=== PATIENT | male | born 1970 | race Caucasian/White ===

== ENCOUNTER → 2018-07-11 | Outpatient (CLI) | payer OTHER ==
--- NOTE | 2018-07-11 14:58 | US ---
US HEAD NECK SOFT TISSUE CLINICAL STATEMENT: MASS. Left neck. COMPARISON: None FINDINGS: Scanning of the left neck, at the location of palpable lesions lesions. Circumscribed hypoechoic mass wider than tall measuring 1.7 x 0.9 x 0.3, with central echogenicity and vascularity, consistent with a lymph node. Located posterior to the anterior left strap muscle. Another lymph node measures 1.2 x 1.1 x 0.4 cm. In the right neck, posterior to the right strap muscle: 3 similar hypoechoic circumscribed objects with long axis measuring 13 mm, 9 mm, and 9.5 mm. Similar appearance to lymph nodes in the left neck. Not significantly vascular. Not palpable. Thyroid lobes are unremarkable size and echogenicity. IMPRESSION: 1. Bilateral lymph nodes in the anterolateral neck, posterior to the anterior strap muscles. The left side lymph nodes were palpable. No reactive lymph nodes or soft tissue masses are seen. No definite cysts. No large calcifications. No abnormal vascularity. CRITICAL COMMUNICATION: The critical value was discussed directly by phone with Dr. Lowell Javier at approximately 1455 hours, on 07/11/2018. Electronically signed by: Fred Narayanan MD 07/11/2018 2:57 PM [facility]
== END ==
LOC: US 10:09
PROVIDERS: ATTEND Family Medicine
DX: R22.1 Localized swelling, mass and lump, neck (principal)

== ENCOUNTER → 2018-10-25 | Outpatient (CLI) | payer OTHER ==
--- NOTE | 2018-10-25 14:04 | CT ---
EXAM DESCRIPTION: Soft Tissue Neck w/Contrast CLINICAL HISTORY: 48 years Male, SWELLING/ LUMP COMPARISON: None. TECHNIQUE: This exam was performed according to our departmental dose-optimization program, which includes automated exposure control, adjustment of the mA and/or kV according to patient size and/or use of iterative reconstruction technique. Enhanced examination of the neck with MPR reformatted images. FINDINGS: Bony spine demonstrates degenerative disc narrowing at C5-6 with posterior bony ridging and reversal of the normal cervical lordosis centered at the C3-4 level. Central spinal canal on a bony basis appears adequate throughout the course of the spine with mildly asymmetric bony ridging to the left of midline at the C5-6 level. Left greater than right foraminal encroachment at this level is present. Bilateral numerous small subcentimeter lymph nodes are noted on both sides of the neck. On the right, in the jugulodigastric region there is a bilobed 2 cm lymph node just anterior to the right jugular vein. On the left in a similar position is any elongated 2.4 cm lymph node by approximately 1 cm in maximal diameter. Necrotic or conglomerate or additional enlarged lymph nodes are not apparent. The parotid glands are hypodense and normal and symmetric in appearance. Symmetric submandibular glands are noted. Intrinsic musculature of the tongue and the appearance of the epiglottis is normal. The parapharyngeal space is preserved. Further inferiorly the hypopharynx and larynx is symmetric with a normal subglottic appearance extending into the thoracic inlet. Superior mediastinal lymphadenopathy or focal mass involving the thyroid is not apparent. Visualized apical portions of the lungs are unremarkable. The visualized portions of the paranasal sinuses and petrous ridges is unremarkable except for small amount of fluid in the posterior left maxillary sinus suggesting minimal left maxillary sinusitis. No orbital abnormality is noted. IMPRESSION: 1. Numerous small centimeter and subcentimeter lymph nodes both sides of the neck with an enlarged approximate 2 cm diameter by 2.8 cm long right jugulodigastric lymph node and slightly smaller 2.4 cm long by 1 cm diameter left jugulodigastric lymph node. Chronic inflammatory changes suspected. Additional pathologic adenopathy is not apparent. 2. Tiny amount of mucosal thickening or air-fluid level in the posterior inferior left maxillary sinus. 3. Remainder of the enhanced CT evaluation of the neck is unremarkable. Electronically signed by: Kane Drake MD 10/25/2018 2:01 PM CDT
== END ==
LOC: LAB.O 12:15
PROVIDERS: ATTEND Family Medicine
DX: R22.1 Localized swelling, mass and lump, neck (principal)